=== PATIENT | male | born 1990 | race American Indian/Alaskan Native ===

== ENCOUNTER 2020-02-26 12:42 | Emergency (ER) | payer SELFPAY ==
[2020-02-26 12:58] VITALS: BP 130/85
--- NOTE | 2020-02-26 12:58 | Emergency Department Report ---
Chief Complaint: Urogenital-Male Stated Complaint: STD CHECK UP Time Seen by Provider: 02/26/20 12:55 - HPI History of Present Illness: This is a 30-year-old male nontoxic, well in appearance with no signs of distress presents to the ED for STD check. Patient stated that his partner called and said has STD. Patient stated he is asymptotic. Denies any penile discharge, testicular pain, or swelling. Patient denies any urinary symptoms. Patient denies any fever, chills, headache, nausea, vomiting, chest pain or shortness of breathe. denies any other symptoms or complaints. Denies any allergies or PMH. - Exam Vital Signs: Vital Signs 02/26/20 12:57 Temperature 97.9 F Pulse Rate 69 Respiratory 18 Rate Blood Pressure 130/85 O2 Sat by Pulse 97 Oximetry Physical Exam: no penile discahrge. no urinary symptoms. no symptoms. normal physical exam. MSE screening note: Focused history and physical exam performed. Due to findings the following was ordered: ED Medical Decision Making - Medical Decision Making This is a 30-year-old male that presents with nonmedical emergency complaint. Patient is just requested for a STD test. Patient denies any symptoms. I gave patient many different referrals to follow-up with STD concerns. Patient was instructed to Follow-up with a primary care doctor in 3-5 days or if symptoms worsen and continue return to emergency room as soon as possible. At time of discharge, the patient does not seem toxic or ill in appearance. No acute signs of distress noted. Patient agrees to discharge treatment plan of care. No further questions noted by the patient. ED Disposition for MSE Clinical Impression: Possible exposure to STD Disposition: Z-07 MED SCREENING EXAM-LEFT Is pt being admited?: No Does the pt Need Aspirin: No Condition: Stable Instructions: Safe Sex (ED) Additional Instructions: Follow-up with a primary care doctor in 3-5 days or if symptoms worsen and continue return to emergency room as soon as possible. Referrals: NAVA DAN MD [Referring] - 3-5 Days FERNANDO REAZ MD [Staff Physician] - 3-5 Days [facility] [Provider Group] - 3-5 Days
== END 2020-02-26 21:46 | disposition left against medical advice (07) ==
LOC: ED 12:42
DX: A64 Unspecified sexually transmitted disease (principal); Z53.21 Procedure and treatment not carried out due to patient leaving prior to being seen by health care provider